=== PATIENT | female | born 1995 | race Two or more races ===

== ENCOUNTER 2018-09-21 16:23 | Emergency (ER) | payer SELFPAY ==
[~2018-09-21] VITALS: Ht 162.6 cm; Wt 87.8 kg
[2018-09-21 17:56] LABS: Urine Bacteria NONE SEEN /hpf (None Seen); Urine Blood Negative /uL (Negative); Urine Mucus FEW (None Seen); Urine Specific Gravity 1.031 (1.001-1.035); Urine WBC 28 /hpf (0 - 5)
[2018-09-21 18:06] LABS: Alcohol, Urine < 3.0 mg/dL (0-5); Amphetamine Screen, Urine POSITIVE (NEGATIVE); Barbiturate Scree,Urine NEGATIVE (NEGATIVE); Benzodiazephine Screen, Urine NEGATIVE (NEGATIVE); Cannabinoid Screen, Urine NEGATIVE (NEGATIVE); Cocaine Screen, Urine NEGATIVE (NEGATIVE); Opiate Scree,Urine NEGATIVE (NEGATIVE); Phencyclidine Screen, Urine NEGATIVE (NEGATIVE)
[2018-09-21 19:10] VITALS: BP 108/60
== END 2018-09-21 19:23 | disposition home or self-care (01) ==
LOC: EDUNIT# 16:23 → ER 16:27
DX: O23.42 Unspecified infection of urinary tract in pregnancy, second trimester (principal); O99.322 Drug use complicating pregnancy, second trimester; F15.10 Other stimulant abuse, uncomplicated; F12.10 Cannabis abuse, uncomplicated; Z3A.19 19 weeks gestation of pregnancy
CPT/HCPCS: 36415; 76805; 80307; 81001; 84702

== ENCOUNTER 2023-12-19 13:35 | Emergency (ER) | payer MEDICAID ==
[~2023-12-19] VITALS: Ht 157.5 cm; Wt 103.6 kg
[2023-12-19] MEDS ORDERED: ACETAMINOPHEN 325 MG TAB PO ONE (14:30)
[2023-12-19] MEDS: SODIUM CHLORIDE 0.9% 1,000 ML IV ONE (15:00)
[2023-12-19] MEDS: ACETAMINOPHEN 500 MG TAB PO ONE (15:00)
[2023-12-19] MEDS ORDERED: KETOROLAC TROMETH 30 MG/ML 1ML VIAL IV ONE (15:00)
[2023-12-19 15:56] LABS: Basophils # (auto) 0 10 ^3/uL (0-0.2); Basophils % (auto) 0.3 % (0.0-2.0); Eosinophils # (auto) 0 10 ^3/uL (0-0.8); Hematocrit 42.4 % (36.0-46.0); Lymphocytes # (auto) 1.4 10 ^3/uL (0.4-5.4); Lymphocytes % (auto) 10.7 % (10.0-50.0); Mean Corpuscular Hemoglobin 28.1 pg (28.0-32.0); Mean Corpuscular Volume 85.4 fL (80.0-100.0); Monocytes # (auto) 1.1 10 ^3/uL (0-1.3); Monocytes % (auto) 8.9 % (0.0-12.0); Neutrophils # (auto) 10.1 10 ^3/uL (1.6-8.6); Neutrophils % (auto) 80.1 % (37.0-80.0); Platelet Count (auto) 203 10^3/uL (140-450); Red Blood Cells 4.97 10^6/uL (4.0-5.20); Red Cell Distribution Width 15.1 % (11.8-14.3); White Blood Cell 12.6 10^3/uL (4.4-10.8)
[2023-12-19 16:14] LABS: Alanine Aminotransferase 104 U/L (7-40); Albumin 4.1 g/dL (3.2-4.8); Alkaline Phosphatase 158 U/L (46-116); Anion Gap 7 (5-15); Aspartate Aminotransferase 97 U/L (13-40); Blood Alcohol 3.7 mg/dL (<10); Blood Urea Nitrogen 9 mg/dL (9-23); Calcium 8.9 mg/dL (8.7-10.4); Carbon Dioxide 29 mmol/L (20-31); Chloride 99 mmol/L (98-107); Glucose 119 mg/dL (74-106); Potassium 2.9 mmol/L (3.5-5.1); Sodium 135 mmol/L (136-145)
[2023-12-19 16:15] LABS: Bilirubin, Total 0.7 mg/dL (0.2-1.0); Creatine Kinase IFCC 156 U/L (34-145); Total Protein 6.6 g/dL (5.7-8.2)
[2023-12-19 16:31] VITALS: BP 106/70; PULSE 128; RESP 20; TEMP 101; O2SAT 96
== END 2023-12-19 16:48 | disposition left against medical advice (07) ==
LOC: ER 13:44
DX: E87.8 Other disorders of electrolyte and fluid balance, not elsewhere classified (principal); R10.2 Pelvic and perineal pain; R74.01 Elevation of levels of liver transaminase levels; R00.0 Tachycardia, unspecified; R50.9 Fever, unspecified; F15.90 Other stimulant use, unspecified, uncomplicated
CPT/HCPCS: 36415; 80053; 80320; 82550; 83880; 84484; 84702; 85025; 93005